=== PATIENT | male | born 1950 | race Caucasian/White ===

== ENCOUNTER → 2025-01-02 | Outpatient (CLI) | payer OTHER ==
--- NOTE | 2025-01-04 23:18 | PE ---
EXAMINATION TYPE: PET CT fusion skull to thigh DATE OF EXAM: 01/02/2025 COMPARISON: 12/18/2024 CT neck Prior PET/CT: None this location CLINICAL INDICATION: Male, 74 years old with history of R22.1 LOCALIZED SWELLING, MASS AND LUMP, NECK , TECHNIQUE: Following the intravenous administration of 10.82 mCi of F-18 FDG, whole body images are performed from the skull base to the upper thighs. Dedicated images were performed through the head a nd neck.. Images are reviewed on the computer in the coronal, axial, and sagittal planes. Reconstru cted rotating images are created on independent workstation and reviewed on the computer. A localiz ation and attenuation correction CT is performed in conjunction with the PET scan. DLP: 541 mGycm SCAN: Initial Blood glucose: 88 mg/dL Average Mediastinum SUV: 2.11 Average Liver SUV: 2.56 FINDINGS: NECK: There is increased uptake within the anterior tongue, SUV 6.3. This can be related to motion d uring the injection. No suspicious uptake is within the aryepiglottic fold region. THORAX: No abnormal uptake ABDOMEN: No abnormal uptake PELVIS: No abnormal uptake OSSEOUS STRUCTURES: No abnormal uptake LOCALIZATION CT: Diverticulosis without acute diverticulitis is present. There is pleural calcificati on in the posterior medial bilateral lung. Some calcifications above the right diaphragm. Moderately advanced coronary artery calcification is present COMPARISON: CT 12/18/2024. No suspicious persistent density in the aryepiglottic folds is identified. IMPRESSION: 1. No suspicious uptake to suggest primary or metastatic neoplasm. [facility], , 01/04/2025 11:15 PM
== END | disposition home or self-care (01) ==
LOC: RADPETMAIN 13:40
PROVIDERS: ATTEND Nurse Practitioner Family
DX: R22.1 Localized swelling, mass and lump, neck (principal)
CPT/HCPCS: 78815; A9552